=== PATIENT | female | born 1985 | race Caucasian/White ===

== ENCOUNTER 2020-01-28 05:02 | Day surgery (SDC) | payer OTHER ==
[2020-01-23 16:21] VITALS: BMI 23.3
[2020-01-28 11:51] VITALS: BP 117/62; PULSE 62; TEMP 97.1
== END 2020-01-28 11:51 | disposition home or self-care (01) ==
LOC: JASU-ENDO 05:02
PROVIDERS: ATTEND Internal Medicine Gastroenterology
PROC: 0DJD8ZZ Inspection of Lower Intestinal Tract, Via Natural or Artificial Opening Endoscopic (ICD-10-PCS; principal; 2020-01-28 10:30)
DX: K64.4 Residual hemorrhoidal skin tags (principal)
CPT/HCPCS: 81025